=== PATIENT | female | born 1960 | race Caucasian/White ===

== ENCOUNTER 2016-05-16 14:34 | Inpatient (IN) | payer MEDICAID, OTHER ==
[2016-05-16] MEDS ORDERED: NORMAL SALINE 1,000 ML IV ONE ×3 (14:51→16:55)
[2016-05-16] MEDS ORDERED: ONDANSETRON HCL/PF 2 MG/ML VIAL IV ONE (14:51)
[2016-05-16] MEDS ORDERED: ONDANSETRON HCL/PF 2 MG/ML VIAL ONE (14:57)
--- NOTE | 2016-05-16 15:13 | ERNOTE ---
Medical Problem HPI - Narrative Date of Service: 05/16/16 - General Chief Complaint: Nausea/Vomiting Time Seen by Provider: 05/16/16 15:03 Source: patient Exam Limitations: no limitations - Immun/Allergies/Home Medications Immunizations: IMMUNIZATION HX Immunizations Up to Date Yes History of Influenza Vaccine No Hx Pneumococcal Vaccination No Allergies/Adverse Reactions: Allergies ceftriaxone [From Rocephin] Allergy (Intermediate, Verified 05/16/16 16:15) Hives Penicillins Adverse Reaction (Mild, Verified 05/16/16 14:45) rash Home Medications: HOME MEDICATIONS Omeprazole [Prilosec] 20 mg PO DAILY 02/27/14 [Last Taken 11/20/14] ALPRAZolam [Xanax] 0.5 mg PO TID PRN #90 tablet 11/25/14 [Last Taken Unknown] - History of Present History Narrative: Has been out of the area in [place], till November last year. Normally taking xanax. Ran out by the first of the year. Didn't have a medical card or a doctor, till just recently, so hasn't had the medication all this year. She appears to be a not entirely forthcoming historian, since to start with, it was vomiting for the last 3-4 days, then it was off and on for the last month or longer. Says she is very anxious, and would like to have some xanax. Has been drinking heavily and constantly from November till about four or five days ago. C/O severe indigestion. Timing: getting worse Severity: moderate Modifying Factors - (Improves): Present: other - nothing Modifying Factors - (Worsens): Present: eating Review of Systems - Review of Systems Constitutional: Present: See HPI EYE: Present: no symptoms reported ENT: Present: no symptoms reported Respiratory: Present: no symptoms reported Cardiology: Present: no symptoms reported Gastrointestinal/Abdominal: Present: nausea, vomiting, other - severe heartburn Genitourinary: Present: no symptoms reported Musculoskeletal: Present: no symptoms reported Skin: Present: no symptoms reported Neurological: Present: anxiety Endocrine: Present: no symptoms reported Hematologic/Lymphatic: Present: no symptoms reported Psych: Present: no symptoms reported All Other Systems: All systems neg except as marked - Patient's Past Medical History Patient History - Medical: Alcohol Abuse, Anxiety, GERD, Other - history of pancreatitis and previous pancreatic mass on imaging study Patient History - Cardiac/Respiratory: No pertinent hx Patient History - Cancer: No Hx of Cancer Patient History - Surgical Procedures: T & A, Other Patient History - Other: None LMP (females 10-50): other - Family History Father Family History - Medical: Diabetes Type 2 - Social History Living Situations: alone Psych History: Hx of Anxiety Smoking Status: Current every day smoker Do you dip or chew tobacco: No Alcohol Use: heavy Drug Use: none - Immunizations Immunizations Up to Date: Yes Hx Pneumococcal Vaccination: No History of Influenza Vaccine: No Physical Exam - Physical Exam General Appearance: Present: wd/wn, alert, anxious, thin Eye Exam: Normal inspection: bilateral, PERRL: bilateral, EOMI: bilateral Ears, Nose, Throat: Present: normal ENT inspection Neck: Present: normal inspection Respiratory: Present: no respiratory distress, normal breath sounds Cardiovascular/Chest: Present: regular rate, rhythm, no murmur Gastrointestinal/Abdominal: Present: normal bowel sounds, nontender, nondistended, soft, hepatomegaly Back Exam: Present: normal inspection Extremity Exam: Present: normal inspection, no edema Neurological Exam: Present: alert, oriented, no motor/sensory deficits Skin Exam: Present: normal color, warm/dry ED Progress - Results and Orders Patient's Lab Results:: I have reviewed the patient's lab results. - Vital Signs Patient's Vital Signs:: I have reviewed the patient's vital signs. Vital Signs: Vital Signs 05/16/16 14:37 Temperature 35.5 C L Pulse Rate 123 H Respiratory 20 Rate Blood Pressure 156/107 O2 Sat by Pulse 100 Oximetry - Progress/Reassessment Chief Complaint: Nausea/Vomiting Departure - Departure Clinical Impression: Alcohol abuse, Pancreatic mass Pancreatitis Qualifiers: Chronicity: acute Pancreatitis type: alcohol induced Acute pancreatitis complication: unspecified Qualified Code(s): K85.20 - Alcohol induced acute pancreatitis without necrosis or infection GERD (gastroesophageal reflux disease) Qualifiers: Esophagitis presence: with esophagitis Qualified Code(s): K21.0 - Gastro- esophageal reflux disease with esophagitis Disposition: [facility] Condition: Serious
[2016-05-16 15:22] LABS: Hematocrit 50.7 % (37.0-47.0); Hemoglobin 17.3 gm/dL (12.5-16.0); Mean Cell Volume 102.4 fl (78-100); Mean Corpuscular Hemoglobin 34.9 pg (27-31); Mean Corpuscular Hgb Conc 34.1 g/dl (32-36); Mean Platelet Volume 9.5 fl (6.0-9.5); Platelet Count 430 K/mm3 (150-450); Red Blood Count 4.95 M/mm3 (4.2-5.4); Red Cell Distribution Width 13.6 % (11.5-14.0); White Blood Count 26.1 K/mm3 (4.0-10.5)
[2016-05-16 15:24] LABS: Cocaine Ur Negative (NEGATIVE); Urine Barbiturate Negative (NEGATIVE); Urine Benzodiazepines Negative (NEGATIVE); Urine Opiates Negative (NEGATIVE); Urine PCP Negative (NEGATIVE); Urine THC Positive (NEGATIVE)
--- OUTSIDE RECORDS SUMMARY | 2016-05-16 15:24 | XMS REPORT | Continuity of Care Document ---
:1960 Author Organization [facility] ([facility]) [place] [address] Phone [phone] Care Team Providers Name Role Phone Christianne James Primary Care Provider [phone] Source Comments This disclosure is being made pursuant to the Care Everywhere program, applicable federal and state laws, and may not contain all informaitonavailable regarding this patient.[facility] ([facility]) Active Allergies and Adverse Reactions Allergen Noted Date Severity Reactions Comments Penicillins 12/14/2012 Rash Current Medications Prescription Sig. Disp. Refills Start Date End Date Status OMEPRAZOLE Take by mouth daily. Active MAGNESIUM PO ALPRAZolam 0.5 mg Take 0.5 mg by mouth at Active tablet bedtime as needed. drospirenone-ethin Take 1 Tab by mouth daily. Active yl Indications: estradiol-levomefo CONTRACEPTION late (BEYAZ) tablet metoPROLol Take 50 mg by mouth 2 Active tartrate 50 mg times daily. tablet benazepril 40 mg Take 40 mg by mouth daily. Active tablet Indications: HYPERTENSION simvastatin 20 mg Take 20 mg by mouth every Active tablet evening. 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 Pulse 84 01/18/2013 7:55 AM HUMANE OFFICER Temperature 36.4 C (97.5 F) 01/18/2013 7:55 AM HUMANE OFFICER Respiratory Rate 16 01/18/2013 7:55 AM HUMANE OFFICER Height 1.6 m (5' 3") 12/14/2012 8:27 AM CDT Weight 67.813 kg (149 lb 8 oz) 01/18/2013 7:55 AM HUMANE OFFICER Body Mass Index 26.49 01/18/2013 7:55 AM HUMANE OFFICER Oxygen Saturation - - Plan of Care Health Maintenance Due Date Last Done Comments HCV Screening 1960 Hepatitis B Vaccine (1 of 3 - Primary Series) 1960 Tdap Vaccine 09/08/1971 Lipid Disorder Screening 1978 MMR Vaccine 1978 Td Vaccine 1978 Cervical Cancer Screening 1990 Mammogram 2000 Colonoscopy 2010 Influenza Vaccine: Seasonal (#1) 09/15/2015 Results from Last 3 Months Not on file
[2016-05-16 15:25] LABS: Total Cells Counted 100
[2016-05-16 15:26] LABS: Urine Appearance Slightly Cloudy; Urine Blood 50 /ul (NEGATIVE); Urine Color Dark Yellow; Urine Ketone Large mg/dL (NEGATIVE); Urine Nitrite Negative (NEGATIVE); Urine Protein 100 mg/dL (NEGATIVE); Urine Urobilinogen Normal (NORMAL)
[2016-05-16 15:27] LABS: Urine Bacteria 1+; Urine Bilirubin 6 mg/dl (NEGATIVE); Urine RBC 0-5 /hpf (0-5); Urine WBC 0-5 /hpf (0-5)
[2016-05-16] MEDS ORDERED: hydrOXYzine PAMOATE 25 MG CAPSULE PO ONE (15:39)
[2016-05-16 15:41] LABS: Band 3 % (0-2.0); Lymphocyte 5 % (20-51); Monocyte 5 % (0-9); Neutrophil 87 % (42-75); Neutrophil # 22.7 K/mm3 (1.3-6.0); Platelet Estimate Increased (NORMAL); RBC Morphology Normal (NORMAL)
[2016-05-16] MEDS ORDERED: hydrOXYzine PAMOATE 25 MG CAPSULE ONE ×2 (15:41→15:43)
[2016-05-16 15:45] LABS: ALT 59 U/L (19-67); AST 66 U/L (0-48); Albumin * 4.1 gm/dl (3.4-5.0); Alkaline Phosphatase * 91 U/L (50-170); Amylase * 442 U/L (25-115); Anion Gap 32.9 mmol/L (6.8-13.8); BUN/Creatinine Ratio 13.1 (9.0-21.6); Bilirubin, Total 1.7 mg/dL (0.0-1.1); Blood Urea Nitrogen 21 mg/dL (3-23); Ca. Corrected For Albumin 10.5 mg/dL (8.4-10.2); Calcium * 10.9 mg/dL (7.9-10.9); Chloride 86 mmol/L (97-106); Glucose * 304 mg/dL (70-110); Potassium 2.9 mmol/L (3.4-4.6); Sodium 131 mmol/L (132-142); T4 Free * 0.97 ng/dL (0.76-1.46); TSH * 1.066 uIU/mL (0.358-3.74); Total Protein 9.2 gm/dL (6.2-8.2)
[2016-05-16] MEDS ORDERED: POTASSIUM CHLORIDE 100 ML IV ONE ×2 (15:49→17:30)
[2016-05-16] MEDS ORDERED: THIAMINE HCL 100 MG/ML VIAL IM ONE (15:50)
[2016-05-16 15:53] LABS: Lipase 6588 U/L (73-393)
[2016-05-16] MEDS ORDERED: THIAMINE HCL 100 MG/ML VIAL ONE (15:59)
[2016-05-16] MEDS ORDERED: LORazepam 2 MG/ML DISP.SYRIN IV ONE (16:28)
[2016-05-16] MEDS ORDERED: SUCRALFATE 1 G/10 ML UDC PO ONE (16:28)
[2016-05-16] MEDS ORDERED: PANTOPRAZOLE SODIUM 40 MG in NORMAL SALINE 100 ML IV ONE (16:28)
--- OUTSIDE RECORDS SUMMARY | 2016-05-16 16:28 | XMS REPORT | Continuity of Care Document ---
:1960 Author Organization [facility] ([facility]) Address [place] [address] Phone [phone] Care Team Providers Name Role Phone Christianne James Primary Care Provider [phone] Source Comments This disclosure is being made pursuant to the Care Everywhere program, applicable federal and state laws, and may not contain all informaitonavailable regarding this patient.[facility] ([facility]) Active Allergies and Adverse Reactions Allergen Noted [...] Taken Blood Pressure 126/76 01/18/2013 7:55 AM C[employer]OM [employer]ED [employer]N OPERATOR Pulse 84 01/18/2013 7:55 AM C[employer]OM [employer] OPERATOR Temperature 36.4 C (97.5 F) 01/18/2013 7:55 AM C[employer]OM FE[employer]N OPERATOR Respiratory Rate 16 01/18/2013 7:55 AM C[employer]OM FE[employer] OPERATOR Height 1.6 m (5' 3") 12/14/2012 8:27 AM CDT Weight 67.813 kg (149 lb 8 oz) 01/18/2013 7:55 AM C[employer]N OPERATOR Body Mass Index 26.49 01/18/2013 7:55 AM C[employer]OM [employer]N OPERATOR Oxygen Saturation - - Plan of Care [...]
[2016-05-16] MEDS: CIPROFLOXACIN IN 5 % DEXTROSE 400 MG/200 ML BAG IV SCH (16:30)
[2016-05-16] MEDS: metroNIDAZOLE/SODIUM CHLORIDE 500 MG/100 ML BAG IV SCH (16:34)
[2016-05-16] MEDS ORDERED: LORazepam 2 MG/ML DISP.SYRIN IV PRN ×2 (16:36)
[2016-05-16] MEDS ORDERED: POTASSIUM CHLORIDE 40 MEQ in NORMAL SALINE 1,000 ML IV PRN (19:00)
[2016-05-16] MEDS: POTASSIUM CHLORIDE/NS 1,000 ML IV SCH (20:11)
[2016-05-16] MEDS: PANTOPRAZOLE SODIUM 40 MG in NORMAL SALINE 100 ML IV SCH (20:11)
--- NOTE | 2016-05-16 20:48 | HP ---
<Gary Duncan - Last Filed: 05/16/16 20:51> Chief Complaint - Chief Complaint Date of Service: 05/16/16 Time of Service: 20:33 Chief Complaint: Nausea, vomiting and indegestion History of Present Illness: 55 years old female adm to the hospital from ER with reports of nausea, vomiting and indigestion going on x 3-4 days. PMH significant for alcohol abuse , GERD, anxiety and pancreatitis. Pt stated she has been drinking 3-4 vodka with Pepsis and smoking marijuana daily, due to her anxiety. She report associated s/s headache and dizziness.She has been living in [place] for the past year and just moved back home. Over the past several months she has been homeless and dealing family member that is sick.She was been without health insurance hence her reason for not seeking care sooner. In ER tested positive for marijuana,WBC 26.1, hgb17.3, K+ 2.9 and supplemented lipase 6588, Bili 1.7 lactic acid 3.6--->1.7 WNL. She was initiated on Cipro and Flagyl prophylactic, concerns for pancreatic fluid collection/ pancreatic necrosis. CT ABD/ Pelvic still pending. Plan of care discussed with pt she verbalized understanding and agrees. - Patient's Past Medical History Patient History - Medical: Alcohol Abuse, Anxiety, GERD, Other - subtance abuse Patient History - Cardiac/Respiratory: No pertinent hx Patient History - Cancer: No Hx of Cancer Patient History - Surgical Procedures: T & A, Other Patient History - Other: None LMP (females 10-50): other - Family History Father Family History - Medical: Diabetes Type 2 - Social History Living Situations: alone Psych History: Hx of Anxiety Smoking Status: Current every day smoker Cigarettes Packs Per Day: 1 Have you smoked in the past 12 months: Yes Do you dip or chew tobacco: No Smoking Start Date: 02/14/14 Patient requests Smoking Cessation Consult: Yes Initiate information on Smoking Cessation: Yes Alcohol Use: heavy Drug Use: benzodiazepine, marijuana - Immunizations Immunizations Up to Date: Yes Hx Pneumococcal Vaccination: No History of Influenza Vaccine: No Review Of Systems (GEN) - Review of Systems Generalized/Overall Review: Present: Weakness EENTM: Present: No Symptoms Reported Respiratory: Present: No Symptoms Reported Cardiac: Present: No Symptoms Reported Abdominal: Present: Nausea, Vomiting Genitourinary: Present: No Symptoms Reported Musculoskeletal: Present: No Symptoms Reported Neurological: Present: Headache, Anxiety Skin: Present: No Symptoms Reported Endocrine: Present: No Symptoms Reported Immunizations: IMMUNIZATION HX Immunizations Up to Date Yes History of Influenza Vaccine No Hx Pneumococcal Vaccination No Allergies/Adverse Reactions: Allergies Allergy/AdvReac Type Severity Reaction Status Date / Time ceftriaxone [From Rocephin] Allergy Intermediate Hives Verified 05/16/16 16:15 Penicillins AdvReac Mild rash Verified 05/16/16 14:45 Home Medications: HOME MEDICATIONS Omeprazole [Prilosec] 20 mg PO DAILY 02/27/14 [Last Taken 11/20/14] ALPRAZolam [Xanax] 0.5 mg PO TID PRN #90 tablet 11/25/14 [Last Taken Unknown] Exam - Exam Vital Signs: Vital Signs - Last Taken Temp 36.5 C 05/16/16 16:36 Pulse 97 05/16/16 16:52 Resp 15 05/16/16 16:52 BP 183/109 05/16/16 16:52 Pulse Ox 100 05/16/16 16:52 Constitutional: Present: Alert, Oriented x3, Cooperative, Well developed, No distress, Young ENT Exam: Present: moist mucous membranes Eye Exam: bilateral eye: PERRL Neck: Present: full range of motion Back Exam: Present: no CVA tenderness Breasts: Present: Exam deferred Respiratory: Present: chest non-tender, lungs clear, normal breath sounds, no respiratory distress Cardiovascular/Chest: Present: normal peripheral pulses, regular rate, rhythm, no chest tenderness, no edema, no gallop, no JVD Peripheral Pulses: dorsalis-pedis (R): 3+, dorsalis-pedis (L): 3+ Abdomen: Present: Normal bowel sounds, soft, nontender, nondistended Extremity: Present: normal range of motion, non-tender, normal inspection, no pedal edema, no calf tenderness Skin Exam: Present: warm/dry Neurologic: Present: oriented x 3 Appearance: Present: appropriate appearance Eye contact: Present: cooperative, good eye contact Thoughts: Present: normal thought pattern Diagnostic Studies: Laboratory Results WBC 26.1 K/mm3 (4.0-10.5) H 05/16/16 15:12 RBC 4.95 M/mm3 (4.2-5.4) 05/16/16 15:12 Hgb 17.3 gm/dL (12.5-16.0) H 05/16/16 15:12 Hct 50.7 % (37.0-47.0) H 05/16/16 15:12 MCV 102.4 fl (78-100) H 05/16/16 15:12 MCH 34.9 pg (27-31) H 05/16/16 15:12 MCHC 34.1 g/dl (32-36) 05/16/16 15:12 RDW 13.6 % (11.5-14.0) 05/16/16 15:12 Plt Count 430 K/mm3 (150-450) 05/16/16 15:12 MPV 9.5 fl (6.0-9.5) 05/16/16 15:12 Neutrophils % (Manual) 87 % (42-75) H 05/16/16 15:12 Band Neuts % (Manual) 3 % (0-2.0) H 05/16/16 15:12 Lymphocytes % (Manual) 5 % (20-51) L 05/16/16 15:12 Monocytes % (Manual) 5 % (0-9) 05/16/16 15:12 Neutrophils # (Manual) 22.7 K/mm3 (1.3-6.0) H 05/16/16 15:12 Lymphocytes # (Manual) 1.3 k/mm3 (1.5-3.5) L 05/16/16 15:12 Monocytes # (Manual) 1.3 k/mm3 (0.0-1.0) H 05/16/16 15:12 Platelet Estimate Increased (NORMAL) H 05/16/16 15:12 RBC Morphology Normal (NORMAL) 05/16/16 15:12 Sodium 131 mmol/L (132-142) L 05/16/16 15:12 Plasma Sodium 134 mmol/L (130-142) 05/16/16 15:12 Potassium 2.9 mmol/L (3.4-4.6) L 05/16/16 15:12 Chloride 86 mmol/L (97-106) L 05/16/16 15:12 Carbon Dioxide 15.0 mmol/L (24-32.6) L 05/16/16 15:12 Anion Gap 32.9 mmol/L (6.8-13.8) H 05/16/16 15:12 BUN 21 mg/dL (3-23) 05/16/16 15:12 Creatinine 1.60 mg/dL (0.4-1.4) H 05/16/16 15:12 Est GFR (Non-Af Amer) 36 mL/min (60-130) L D 05/16/16 15:12 BUN/Creatinine Ratio 13.1 (9.0-21.6) 05/16/16 15:12 Random Glucose 304 mg/dL (70-110) H 05/16/16 15:12 Lactic Acid, Venous 1.7 mmol/L (0.4-2.0) 05/16/16 17:42 Calcium 10.9 mg/dL (7.9-10.9) 05/16/16 15:12 Calcium Adj for Albumin 10.5 mg/dL (8.4-10.2) H 05/16/16 15:12 Magnesium 1.3 mg/dL (1.2-2.8) 05/16/16 15:12 Total Bilirubin 1.7 mg/dL (0.0-1.1) H 05/16/16 15:12 AST 66 U/L (0-48) H 05/16/16 15:12 ALT 59 U/L (19-67) 05/16/16 15:12 Alkaline Phosphatase 91 U/L (50-170) 05/16/16 15:12 Total Protein 9.2 gm/dL (6.2-8.2) H 05/16/16 15:12 Albumin 4.1 gm/dl (3.4-5.0) 05/16/16 15:12 Amylase 442 U/L (25-115) H 05/16/16 15:12 Lipase 6588 U/L (73-393) H 05/16/16 15:12 TSH 1.066 uIU/mL (0.358-3.74) 05/16/16 15:12 Free T4 0.97 ng/dL (0.76-1.46) 05/16/16 15:12 Urine Color Dark yellow 05/16/16 15:06 Urine Appearance Slightly cloudy 05/16/16 15:06 Urine pH 6.0 pH (5.0-7.0) 05/16/16 15:06 Ur Specific [place] 1.030 SP.GR. (1.005-1.010) 05/16/16 15:06 Urine Protein 100 mg/dL (NEGATIVE) H 05/16/16 15:06 Urine Glucose (UA) Negative mg/dL (NEGATIVE) 05/16/16 15:06 Urine Ketones Large mg/dL (NEGATIVE) 05/16/16 15:06 Urine Blood 50 /ul (NEGATIVE) H 05/16/16 15:06 Urine Nitrate Negative (NEGATIVE) 05/16/16 15:06 Urine Bilirubin 6 mg/dl (NEGATIVE) 05/16/16 15:06 Prot Sulfosalicylic Acd 4+ mg/dL (0) H 05/16/16 15:06 Urine Urobilinogen Normal EU/dl (NORMAL) 05/16/16 15:06 Ur Leukocyte Esterase Negative /ul (NEGATIVE) 05/16/16 15:06 Urine RBC 0-5 /hpf (0-5) 05/16/16 15:06 Urine WBC 0-5 /hpf (0-5) 05/16/16 15:06 Ur Epithelial Cells 0-5 /hpf (0-5) 05/16/16 15:06 Urine Bacteria 1+ (NONE) H 05/16/16 15:06 Urine Culture Comments No culture indicated 05/16/16 15:06 Urine Opiates Screen Negative (NEGATIVE) 05/16/16 15:06 Barbiturate Screen Negative (NEGATIVE) 05/16/16 15:06 Ur Phencyclidine Scrn Negative (NEGATIVE) 05/16/16 15:06 Urine Amphetamine Negative (NEGATIVE) 05/16/16 15:06 U Benzodiazepines Scrn Negative (NEGATIVE) 05/16/16 15:06 Urine Cocaine Screen Negative (NEGATIVE) 05/16/16 15:06 Urine Marijuana (THC) Positive (NEGATIVE) H 05/16/16 15:06 Ethyl Alcohol Less than 3.0 mg/dL (0.0-10.0) 05/16/16 15:12 Assessment/Plan - Narrative Narrative: Acute pancreatitis- secondary to Alcohol abuse Pt stated her last drink was yesterday, she report having 3-4 Vodka and Pepsis daily. Due to alcohol induced pancreatitis will continue with folic acid, MVI, Thiamin , ativan and CIWA protocol Keep NPO and monitor I/O Continue with IVF resuscitation On adm Lipase 6588, mag 1.3, trevon 10.9 and K+2.9 been supplemented continue to Monitor lipase, CMP in morning Cipro and Flagyl prophylactic: concerns for pancreatic necrosis/ pancreatic duct fluid collection, s/s 3-[address]BD/ Pelvic pending Pain control with morphine Alcohol abuse- chronic alcohol abuse Alcohol cessation education CIWA protocol with ativan AA recommendation upon discharge GERD Continue with Protonix IV Anxiety Hold Xanax and use ativan for alcohol withdrawal Hypertension On adm BP 153/80 Continue to monitor Code status: Full GI ppx: Protonix Anticipate discharge home 1-3 days Time 45 minutes - Assessment/Plan (1) Acute pancreatitis Problem: Acute QualifierTitle: Pancreatitis type: alcohol induced (2) Alcohol abuse Problem: Chronic (3) GERD (gastroesophageal reflux disease) Problem: Chronic QualifierTitle: Esophagitis presence: with esophagitis Qualified Code(s) : K21.0 - Gastro-esophageal reflux disease with esophagitis (4) Anxiety Problem: Chronic <Davian Carrero - Last Filed: 05/17/16 17:38> Immunizations: IMMUNIZATION HX Immunizations Up to Date Yes History of Influenza Vaccine No Hx Pneumococcal Vaccination No Exam - Exam Vital Signs: Vital Signs - Last Taken Temp 36.6 C 05/17/16 15:38 Pulse 75 05/17/16 15:38 Resp 18 05/17/16 15:38 BP 145/88 05/17/16 15:38 Pulse Ox 97 05/17/16 15:38 Diagnostic Studies: Abnormal Lab Results 05/17/16 05/17/16 Range/Units 05:10 05:10 WBC 14.2 H D (4.0-10.5) K/mm3 RBC 3.57 L (4.2-5.4) M/mm3 Hct 36.0 L (37.0-47.0) % MCV 100.8 H (78-100) fl MCH 35.3 H (27-31) pg MPV 10.1 H (6.0-9.5) fl Immature Gran % (Auto) 0.50 H (0.001-0.429) % Immature Gran # (Auto) 0.07 H (0.000-0.0310) K/mm3 Neutrophils % 77.4 H (42-75.0) % Lymphocytes % 13.4 L (20-51) % Neutrophils # 11.0 H (1.3-6.0) K/mm3 Monocytes # 1.1 H (0.0-1.0) k/mm3 Carbon Dioxide 21.0 L (24-32.6) mmol/L Anion Gap 16.4 H (6.8-13.8) mmol/L Random Glucose 140 H D (70-110) mg/dL Total Protein 6.1 L (6.2-8.2) gm/dL Albumin 2.7 L (3.4-5.0) gm/dl HDL Cholesterol 39 L (40-60) mg/dL Cholesterol/HDL Ratio 4.9 H (3.3-4.4) mg/dL Amylase 141 H (25-115) U/L Lipase 2025 H (73-393) U/L Laboratory Results WBC 14.2 K/mm3 (4.0-10.5) H D 05/17/16 05:10 RBC 3.57 M/mm3 (4.2-5.4) L 05/17/16 05:10 Hgb 12.6 gm/dL (12.5-16.0) 05/17/16 05:10 Hct 36.0 % (37.0-47.0) L 05/17/16 05:10 MCV 100.8 fl (78-100) H 05/17/16 05:10 MCH 35.3 pg (27-31) H 05/17/16 05:10 MCHC 35.0 g/dl (32-36) 05/17/16 05:10 RDW 13.2 % (11.5-14.0) 05/17/16 05:10 Plt Count 248 K/mm3 (150-450) 05/17/16 05:10 MPV 10.1 fl (6.0-9.5) H 05/17/16 05:10 Immature Gran % (Auto) 0.50 % (0.001-0.429) H 05/17/16 05:10 Immature Gran # (Auto) 0.07 K/mm3 (0.000-0.0310) H 05/17/16 05:10 Neutrophils % 77.4 % (42-75.0) H 05/17/16 05:10 Neutrophils % (Manual) 87 % (42-75) H 05/16/16 15:12 Band Neuts % (Manual) 3 % (0-2.0) H 05/16/16 15:12 Lymphocytes % 13.4 % (20-51) L 05/17/16 05:10 Lymphocytes % (Manual) 5 % (20-51) L 05/16/16 15:12 Monocytes % 7.7 % (0.0-9) 05/17/16 05:10 Monocytes % (Manual) 5 % (0-9) 05/16/16 15:12 Eosinophils % 0.8 % (0.0-3.0) 05/17/16 05:10 Basophils % 0.2 % (0.0-1.0) 05/17/16 05:10 Nucleated RBC % 0.0 k/mm3 (0-1) 05/17/16 05:10 Neutrophils # 11.0 K/mm3 (1.3-6.0) H 05/17/16 05:10 Neutrophils # (Manual) 22.7 K/mm3 (1.3-6.0) H 05/16/16 15:12 Lymphocytes # 1.9 k/mm3 (1.5-3.5) 05/17/16 05:10 Lymphocytes # (Manual) 1.3 k/mm3 (1.5-3.5) L 05/16/16 15:12 Monocytes # 1.1 k/mm3 (0.0-1.0) H 05/17/16 05:10 Monocytes # (Manual) 1.3 k/mm3 (0.0-1.0) H 05/16/16 15:12 Eosinophils # 0.1 k/mm3 (0.0-0.7) 05/17/16 05:10 Absolute Basophils 0.0 k/mm3 (0.0-0.1) 05/17/16 05:10 Platelet Estimate Increased (NORMAL) H 05/16/16 15:12 RBC Morphology Normal (NORMAL) 05/16/16 15:12 Sodium 135 mmol/L (132-142) 05/17/16 05:10 Plasma Sodium 136 mmol/L (130-142) 05/17/16 05:10 Potassium 3.4 mmol/L (3.4-4.6) 05/17/16 05:10 Chloride 101 mmol/L (97-106) 05/17/16 05:10 Carbon Dioxide 21.0 mmol/L (24-32.6) L 05/17/16 05:10 Anion Gap 16.4 mmol/L (6.8-13.8) H 05/17/16 05:10 BUN 11 mg/dL (3-23) 05/17/16 05:10 Creatinine 0.79 mg/dL (0.4-1.4) 05/17/16 05:10 Est GFR (Non-Af Amer) 80 mL/min (60-130) D 05/17/16 05:10 BUN/Creatinine Ratio 13.9 (9.0-21.6) 05/17/16 05:10 Random Glucose 140 mg/dL (70-110) H D 05/17/16 05:10 Lactic Acid, Venous 1.7 mmol/L (0.4-2.0) 05/16/16 17:42 Calcium 8.4 mg/dL (7.9-10.9) 05/17/16 05:10 Calcium Adj for Albumin 9.1 mg/dL (8.4-10.2) 05/17/16 05:10 Magnesium 1.3 mg/dL (1.2-2.8) 05/16/16 15:12 Total Bilirubin 0.8 mg/dL (0.0-1.1) 05/17/16 05:10 AST 37 U/L (0-48) 05/17/16 05:10 ALT 36 U/L (19-67) 05/17/16 05:10 Alkaline Phosphatase 55 U/L (50-170) 05/17/16 05:10 Total Protein 6.1 gm/dL (6.2-8.2) L 05/17/16 05:10 Albumin 2.7 gm/dl (3.4-5.0) L 05/17/16 05:10 Triglycerides 161 mg/dL (30-200) 05/17/16 05:10 Cholesterol 194 mg/dL (0-200) 05/17/16 05:10 LDL Cholesterol 123 mg/dL (70-130) 05/17/16 05:10 VLDL Cholesterol 32 mg/dL (5-40) 05/17/16 05:10 HDL Cholesterol 39 mg/dL (40-60) L 05/17/16 05:10 Cholesterol/HDL Ratio 4.9 mg/dL (3.3-4.4) H 05/17/16 05:10 Amylase 141 U/L (25-115) H 05/17/16 05:10 Lipase 2025 U/L (73-393) H 05/17/16 05:10 TSH 1.292 uIU/mL (0.358-3.74) 05/17/16 05:10 Free T4 0.92 ng/dL (0.76-1.46) 05/17/16 05:10 Urine Color Dark yellow 05/16/16 15:06 Urine Appearance Slightly cloudy 05/16/16 15:06 Urine pH 6.0 pH (5.0-7.0) 05/16/16 15:06 Ur Specific [place] 1.030 SP.GR. (1.005-1.010) 05/16/16 15:06 Urine Protein 100 mg/dL (NEGATIVE) H 05/16/16 15:06 Urine Glucose (UA) Negative mg/dL (NEGATIVE) 05/16/16 15:06 Urine Ketones Large mg/dL (NEGATIVE) 05/16/16 15:06 Urine Blood 50 /ul (NEGATIVE) H 05/16/16 15:06 Urine Nitrate Negative (NEGATIVE) 05/16/16 15:06 Urine Bilirubin 6 mg/dl (NEGATIVE) 05/16/16 15:06 Prot Sulfosalicylic Acd 4+ mg/dL (0) H 05/16/16 15:06 Urine Urobilinogen Normal EU/dl (NORMAL) 05/16/16 15:06 Ur Leukocyte Esterase Negative /ul (NEGATIVE) 05/16/16 15:06 Urine RBC 0-5 /hpf (0-5) 05/16/16 15:06 Urine WBC 0-5 /hpf (0-5) 05/16/16 15:06 Ur Epithelial Cells 0-5 /hpf (0-5) 05/16/16 15:06 Urine Bacteria 1+ (NONE) H 05/16/16 15:06 Urine Culture Comments No culture indicated 05/16/16 15:06 Urine Opiates Screen Negative (NEGATIVE) 05/16/16 15:06 Barbiturate Screen Negative (NEGATIVE) 05/16/16 15:06 Ur Phencyclidine Scrn Negative (NEGATIVE) 05/16/16 15:06 Urine Amphetamine Negative (NEGATIVE) 05/16/16 15:06 U Benzodiazepines Scrn Negative (NEGATIVE) 05/16/16 15:06 Urine Cocaine Screen Negative (NEGATIVE) 05/16/16 15:06 Urine Marijuana (THC) Positive (NEGATIVE) H 05/16/16 15:06 Ethyl Alcohol Less than 3.0 mg/dL (0.0-10.0) 05/16/16 15:12 Assessment/Plan - Narrative Narrative: I reviewed the entire record and examined the patient. We will give IV antibiotics, anticipating the results of the abdominal AT scan. I directly supervised our nurse practitioner in all of her care for this patient.
[2016-05-16] MEDS: NICOTINE 21 MG PATC TD SCH (22:23)
[2016-05-16] MEDS: ENOXAPARIN SODIUM 40 MG/0.4 ML SYRG SC SCH (22:23)
[2016-05-17] MEDS: metroNIDAZOLE/SODIUM CHLORIDE 500 MG/100 ML BAG IV SCH ×4 (01:21→16:58)
[2016-05-17] MEDS: CIPROFLOXACIN IN 5 % DEXTROSE 400 MG/200 ML BAG IV SCH ×2 (03:25→15:26)
[2016-05-17] MEDS: PANTOPRAZOLE SODIUM 40 MG in NORMAL SALINE 100 ML IV SCH ×2 (05:23→18:57)
[2016-05-17] MEDS: MORPHINE SULFATE 2 MG/ML DISP.SYRIN IV PRN ×2 (05:38→15:16)
[2016-05-17] MEDS: POTASSIUM CHLORIDE/NS 1,000 ML IV SCH ×2 (05:40→16:58)
[2016-05-17 06:00] LABS: Hemoglobin 12.6 gm/dL (12.5-16.0); Mean Cell Volume 100.8 fl (78-100); Mean Corpuscular Hemoglobin 35.3 pg (27-31); Mean Platelet Volume 10.1 fl (6.0-9.5); Neutrophil % 77.4 % (42-75.0); Platelet Count 248 K/mm3 (150-450); Red Blood Count 3.57 M/mm3 (4.2-5.4); Red Cell Distribution Width 13.2 % (11.5-14.0); White Blood Count 14.2 K/mm3 (4.0-10.5)
[2016-05-17 06:32] LABS: Albumin * 2.7 gm/dl (3.4-5.0); Anion Gap 16.4 mmol/L (6.8-13.8); BUN/Creatinine Ratio 13.9 (9.0-21.6); Bilirubin, Total 0.8 mg/dL (0.0-1.1); Ca. Corrected For Albumin 9.1 mg/dL (8.4-10.2); Calcium * 8.4 mg/dL (7.9-10.9); Chol/HDL Risk Ratio 4.9 mg/dL (3.3-4.4); Potassium 3.4 mmol/L (3.4-4.6); T4 Free * 0.92 ng/dL (0.76-1.46); TSH * 1.292 uIU/mL (0.358-3.74); Total Protein 6.1 gm/dL (6.2-8.2)
[2016-05-17] MEDS: FOLIC ACID 1 MG TABLET PO SCH (08:51)
[2016-05-17] MEDS: THIAMINE HCL 100 MG in NORMAL SALINE 50 ML IV SCH (08:55)
[2016-05-17] MEDS ORDERED: DIATRIZOATE MEGLUMINE, SODIUM 30 ML BTL PO ONE (11:09)
[2016-05-17] MEDS: LORazepam 2 MG/ML DISP.SYRIN IV PRN (15:20)
[2016-05-17] MEDS: ENOXAPARIN SODIUM 40 MG/0.4 ML SYRG SC SCH (17:00)
--- NOTE | 2016-05-17 19:29 | PN ---
Subjective - Date and Time Seen Date: 05/17/16 Time: 19:24 Subjective Narrative: Much better tonight. No pain, except a "migraine." No vomiting, no nausea. Told her about the need to followup further about her pancreas in the very near future, and she expressed understanding and willingness to do so. Objective - Review of Systems Generalized/Overall Review: Reports: Malaise EENTM: Reports: No Symptoms Reported Respiratory: Reports: No Symptoms Reported Cardiac: Reports: No Symptoms Reported Abdominal: Reports: No Symptoms Reported Genitourinary Symptoms: Reports: No Symptoms Reported Musculoskeletal Complaints: Reports: No Symptoms Reported Neurological: Reports: Headache Skin: Reports: No Symptoms Reported Endocrine: Reports: No Symptoms Reported Misc: All systems neg except as marked - Vitals Vitals: Last Vital Signs Selected Entries 05/17/16 18:19 Temperature 36.7 C Temperature Oral Source Pulse Rate 75 Respiratory 18 Rate Blood Pressure 125/69 Blood Pressure Supine Position O2 Sat by Pulse 99 Oximetry Oxygen Delivery Room Air Method - Abnormal Lab Findings Abnormal Lab Findings: Abnormal Lab Results 05/17/16 05/17/16 Range/Units 05:10 05:10 WBC 14.2 H D (4.0-10.5) K/mm3 RBC 3.57 L (4.2-5.4) M/mm3 Hct 36.0 L (37.0-47.0) % MCV 100.8 H (78-100) fl MCH 35.3 H (27-31) pg MPV 10.1 H (6.0-9.5) fl Immature Gran % (Auto) 0.50 H (0.001-0.429) % Immature Gran # (Auto) 0.07 H (0.000-0.0310) K/mm3 Neutrophils % 77.4 H (42-75.0) % Lymphocytes % 13.4 L (20-51) % Neutrophils # 11.0 H (1.3-6.0) K/mm3 Monocytes # 1.1 H (0.0-1.0) k/mm3 Carbon Dioxide 21.0 L (24-32.6) mmol/L Anion Gap 16.4 H (6.8-13.8) mmol/L Random Glucose 140 H D (70-110) mg/dL Total Protein 6.1 L (6.2-8.2) gm/dL Albumin 2.7 L (3.4-5.0) gm/dl HDL Cholesterol 39 L (40-60) mg/dL Cholesterol/HDL Ratio 4.9 H (3.3-4.4) mg/dL Amylase 141 H (25-115) U/L Lipase 2025 H (73-393) U/L - Exam Constitutional: Present: Alert, Oriented x3, Cooperative, Well developed, Well nourished, No distress ENT Exam: Present: normal ENT inspection, hearing grossly normal Neck: Present: normal inspection Respiratory: Present: lungs clear, no respiratory distress Cardiovascular/Chest: Present: regular rate, rhythm, no murmur Abdomen: Present: Normal bowel sounds, soft, nondistended, no rebound tenderness , no hepatospenomegaly, no masses, tender - slight epigastric tenderness. Extremity: Present: normal inspection, no pedal edema Skin Exam: Present: normal color, warm/dry, no cyanosis Neurologic: Present: alert, oriented x 3 Appearance: Present: appropriate appearance, neat Eye contact: Present: cooperative, good eye contact, normal speech Assessment/Plan Plan Narrative: Advance diet. Follow labs. Further pancreas eval as outpatient. - Problems/Diagnosis (1) Migraine Problem: Acute Qualifiers: Migraine type: without aura Status migrainosus presence: with status migrainosus Intractability: not intractable Qualified Code(s): G43.001 - Migraine without aura, not intractable, with status migrainosus (2) Pancreatic mass Problem: Chronic (3) Pancreatitis Problem: Acute Qualifiers: Chronicity: acute Pancreatitis type: alcohol induced Acute pancreatitis complication: unspecified Qualified Code(s): K85.20 - Alcohol induced acute pancreatitis without necrosis or infection (4) Alcohol abuse Problem: Chronic (5) GERD (gastroesophageal reflux disease) Problem: Chronic Qualifiers: Esophagitis presence: with esophagitis Qualified Code(s): K21.0 - Gastro- esophageal reflux disease with esophagitis (6) Anemia Problem: Acute Qualifiers: Anemia type: other cause Other causes of anemia: other cause, not classified Qualified Code(s): D64.89 - Other specified anemias (7) Anxiety Problem: Chronic (8) Hypertension Problem: Chronic Qualifiers: Hypertension type: essential hypertension Qualified Code(s): I10 - Essential (primary) hypertension
[2016-05-17] MEDS: NICOTINE 21 MG PATC TD SCH (22:51)
[2016-05-17] MEDS ORDERED: MAG HYDROX/ALUMINUM HYD/SIMETH 30 ML UDC PO ONE (23:15)
[2016-05-18] MEDS: metroNIDAZOLE/SODIUM CHLORIDE 500 MG/100 ML BAG IV SCH ×2 (00:30→08:29)
[2016-05-18] MEDS: POTASSIUM CHLORIDE/NS 1,000 ML IV SCH ×2 (01:42→18:39)
[2016-05-18] MEDS: CIPROFLOXACIN IN 5 % DEXTROSE 400 MG/200 ML BAG IV SCH (03:41)
[2016-05-18] MEDS: PANTOPRAZOLE SODIUM 40 MG in NORMAL SALINE 100 ML IV SCH ×2 (05:21→17:16)
[2016-05-18 06:27] LABS: Hematocrit 33.6 % (37.0-47.0); Hemoglobin 11.6 gm/dL (12.5-16.0); Mean Cell Volume 100.9 fl (78-100); Mean Corpuscular Hemoglobin 34.8 pg (27-31); Mean Corpuscular Hgb Conc 34.5 g/dl (32-36); Mean Platelet Volume 9.7 fl (6.0-9.5); Neutrophil # 5.5 K/mm3 (1.3-6.0); Neutrophil % 66.1 % (42-75.0); Platelet Count 172 K/mm3 (150-450); Red Blood Count 3.33 M/mm3 (4.2-5.4); Red Cell Distribution Width 13.3 % (11.5-14.0); White Blood Count 8.4 K/mm3 (4.0-10.5)
[2016-05-18 06:36] LABS: Amylase * 59 U/L (25-115); Lipase 1015 U/L (73-393)
[2016-05-18] MEDS: LORazepam 2 MG/ML DISP.SYRIN IV PRN ×3 (07:40→23:23)
[2016-05-18] MEDS ORDERED: ONDANSETRON HCL/PF 2 MG/ML VIAL IV PRN (08:12)
[2016-05-18] MEDS: FOLIC ACID 1 MG TABLET PO SCH (08:31)
[2016-05-18] MEDS: THIAMINE HCL 100 MG in NORMAL SALINE 50 ML IV SCH (09:37)
[2016-05-18] MEDS: MORPHINE SULFATE 2 MG/ML DISP.SYRIN IV PRN ×2 (12:48→22:02)
[2016-05-18] MEDS ORDERED: lamoTRIgine 100 MG TABLET PO SCH (17:00)
[2016-05-18] MEDS: ACAMPROSATE CALCIUM 333 MG TABLET PO SCH (17:16)
[2016-05-18] MEDS: ENOXAPARIN SODIUM 40 MG/0.4 ML SYRG SC SCH (17:17)
--- NOTE | 2016-05-18 17:37 | PN ---
Subjective - Date and Time Seen Date: 05/18/16 Time: 06:25 Subjective Narrative: Feels lousy today. Anxious. Has used benzodiazepines as an outpatient in the past to keep this under control. No pain, except a "migraine." No vomiting, but has some nausea. Discussed consult with Dr. Reid, and she agreed she would do this. Objective - Review of Systems Generalized/Overall Review: Reports: Malaise EENTM: Reports: No Symptoms Reported Respiratory: Reports: No Symptoms Reported Cardiac: Reports: No Symptoms Reported Abdominal: Reports: Nausea Genitourinary Symptoms: Reports: No Symptoms Reported Musculoskeletal Complaints: Reports: No Symptoms Reported Neurological: Reports: Headache, Anxiety Skin: Reports: No Symptoms Reported Endocrine: Reports: No Symptoms Reported Misc: All systems neg except as marked - Vitals Vitals: Last Vital Signs Selected Entries 05/18/16 03:41 Temperature 36.5 C Temperature Oral Source Pulse Rate 61 Pulse Rhythm Regular Respiratory 18 Rate Respiratory Normal Depth Respiratory Normal Effort Blood Pressure 152/75 Blood Pressure Supine Position O2 Sat by Pulse 99 Oximetry Oxygen Delivery Room Air Method - Abnormal Lab Findings Abnormal Lab Findings: Abnormal Lab Results 05/18/16 05/18/16 Range/Units 06:20 06:20 RBC 3.33 L (4.2-5.4) M/mm3 Hgb 11.6 L (12.5-16.0) gm/dL Hct 33.6 L (37.0-47.0) % MCV 100.9 H (78-100) fl MCH 34.8 H (27-31) pg MPV 9.7 H (6.0-9.5) fl Immature Gran % (Auto) 0.50 H (0.001-0.429) % Immature Gran # (Auto) 0.04 H (0.000-0.0310) K/mm3 Lipase 1015 H (73-393) U/L - Exam Constitutional: Present: Alert, Oriented x3, Cooperative, Well developed, Well nourished, No distress ENT Exam: Present: normal ENT inspection, hearing grossly normal Neck: Present: normal inspection Respiratory: Present: lungs clear, no respiratory distress Cardiovascular/Chest: Present: regular rate, rhythm, no murmur Abdomen: Present: Normal bowel sounds, soft, nontender, nondistended, no rebound tenderness, no hepatospenomegaly, no masses, obese Extremity: Present: normal range of motion, no pedal edema Skin Exam: Present: normal color, warm/dry, no cyanosis Neurologic: Present: alert, oriented x 3 Appearance: Present: appropriate appearance, neat Eye contact: Present: cooperative, good eye contact, normal speech Assessment/Plan Plan Narrative: Follow labs. Add naltrexone, lamictal, acamprasote, and risperdal. Consult Dr. Reid. Home in 1-2 days. - Problems/Diagnosis (1) Migraine Problem: Acute Qualifiers: Migraine type: without aura Status migrainosus presence: with status migrainosus Intractability: not intractable Qualified Code(s): G43.001 - Migraine without aura, not intractable, with status migrainosus (2) Pancreatic mass Problem: Chronic (3) Pancreatitis Problem: Acute Qualifiers: Chronicity: acute Pancreatitis type: alcohol induced Acute pancreatitis complication: unspecified Qualified Code(s): K85.20 - Alcohol induced acute pancreatitis without necrosis or infection (4) Alcohol abuse Problem: Chronic (5) GERD (gastroesophageal reflux disease) Problem: Chronic Qualifiers: Esophagitis presence: with esophagitis Qualified Code(s): K21.0 - Gastro- esophageal reflux disease with esophagitis (6) Anemia Problem: Acute Qualifiers: Anemia type: other cause Other causes of anemia: other cause, not classified Qualified Code(s): D64.89 - Other specified anemias (7) Anxiety Problem: Chronic (8) Hypertension Problem: Chronic Qualifiers: Hypertension type: essential hypertension Qualified Code(s): I10 - Essential (primary) hypertension
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
[2016-05-18] MEDS ORDERED: risperiDONE 1 MG TABLET PO SCH (21:00)
[2016-05-18] MEDS ORDERED: NALTREXONE HCL 50 MG TABLET PO SCH (21:00)
[2016-05-18] MEDS: NICOTINE 21 MG PATC TD SCH (22:02)
[2016-05-18] MEDS: CALCIUM CARBONATE 500 MG TAB.CHEW PO PRN (23:00)
[2016-05-19] MEDS: POTASSIUM CHLORIDE/NS 1,000 ML IV SCH (01:23)
[2016-05-19] MEDS: MORPHINE SULFATE 2 MG/ML DISP.SYRIN IV PRN ×2 (04:48→06:58)
[2016-05-19] MEDS: PANTOPRAZOLE SODIUM 40 MG in NORMAL SALINE 100 ML IV SCH (05:00)
[2016-05-19 05:43] LABS: Hematocrit 33.8 % (37.0-47.0); Hemoglobin 11.8 gm/dL (12.5-16.0); Mean Cell Volume 100.9 fl (78-100); Mean Corpuscular Hemoglobin 35.2 pg (27-31); Mean Corpuscular Hgb Conc 34.9 g/dl (32-36); Mean Platelet Volume 10.3 fl (6.0-9.5); Platelet Count 188 K/mm3 (150-450); Red Blood Count 3.35 M/mm3 (4.2-5.4); Red Cell Distribution Width 13.2 % (11.5-14.0); White Blood Count 9.7 K/mm3 (4.0-10.5)
[2016-05-19 06:07] LABS: BUN/Creatinine Ratio 2.3 (9.0-21.6); Calcium * 8.6 mg/dL (7.9-10.9); Carbon Dioxide 28.4 mmol/L (24-32.6); Estimated Creat Clear 122.3; Potassium 3.4 mmol/L (3.4-4.6)
[2016-05-19] MEDS: CALCIUM CARBONATE 500 MG TAB.CHEW PO PRN (07:09)
[2016-05-19 07:13] VITALS: BP 149/73
--- NOTE | 2016-05-19 08:22 | DS ---
(1) Migraine Problem: Acute Qualifiers: Migraine type: without aura Status migrainosus presence: with status migrainosus Intractability: not intractable Qualified Code(s): G43.001 - Migraine without aura, not intractable, with status migrainosus (2) Pancreatic mass Problem: Chronic (3) Pancreatitis Problem: Resolved Qualifiers: Chronicity: acute Pancreatitis type: alcohol induced Acute pancreatitis complication: unspecified Qualified Code(s): K85.20 - Alcohol induced acute pancreatitis without necrosis or infection (4) Alcohol abuse Problem: Chronic (5) GERD (gastroesophageal reflux disease) Problem: Chronic Qualifiers: Esophagitis presence: with esophagitis Qualified Code(s): K21.0 - Gastro- esophageal reflux disease with esophagitis (6) Anemia Problem: Acute Qualifiers: Anemia type: other cause Other causes of anemia: other cause, not classified Qualified Code(s): D64.89 - Other specified anemias (7) Anxiety Problem: Chronic (8) Hypertension Problem: Chronic Qualifiers: Hypertension type: essential hypertension Qualified Code(s): I10 - Essential (primary) hypertension (9) Chronic back pain Problem: Chronic Qualifiers: Back pain location: low back pain Back pain laterality: bilateral Sciatica presence: without sciatica Qualified Code(s): M54.5 - Low back pain; G89.29 - Other chronic pain (10) Chronic neck pain Problem: Chronic (11) Tobacco abuse Problem: Chronic Description of Stay: Conservative treatment for pancreatitis. Improved rapidly. Initially gave IV antibiotics, stopped when CT results became available. Seen by consultation from psychiatry, will follow as outpatient. Daily chronic headache. Chronic expressed desire for xanax. Chronic neck and low back pain. Wants to stop smoking. Procedures Performed: none Discharge Disposition: Home self care Disposition: Home self-care Condition: Fair Discharge Activity: Activity as tolerated Consultation Done:: Dr. Reid, psychiatry Problem Oriented Discharge Instructions to Patient/Family: Acute Pancreatitis, [id number], Alcohol Abuse and Nutrition, Alcohol Use Disorder Additional Patient Instructions (free text): CBC BMP Liver panel [address] Wolf [address] Reid 1 week. Prescriptions (Any new or edited meds): Acamprosate Calcium [Campral] 2 tab PO TID #180 tablet Disulfiram [Antabuse] 500 mg PO DAILY #30 tablet Folic Acid 1 mg PO DAILY #30 tablet Gabapentin 300 mg PO TID #90 capsule Multivitamins [Multivitamin Ca] 1 cap PO DAILY #30 capsule Naltrexone HCl [ReVia] 50 mg PO HS #30 tablet Nicotine [Nicoderm] 21 mg TD Q24H #30 patch.td24 Thiamine HCl [B-1] 100 mg PO DAILY #30 tablet Topiramate [Topamax] 25 mg PO DAILY #30 cap lamoTRIgine [Lamictal] 50 mg PO DAILY@1700 #30 tablet risperiDONE [Risperdal] 1 mg PO HS #30 tablet Complete Home Medications List: Complete Home Medication List: Acamprosate Calcium [Campral] 2 tab PO TID #180 tablet 05/19/16 Calcium Carbonate [Tums] 500 mg PO QID PRN #0 tab.chew 05/19/16 Disulfiram [Antabuse] 500 mg PO DAILY #30 tablet 05/19/16 Folic Acid 1 mg PO DAILY #30 tablet 05/19/16 Gabapentin 300 mg PO TID #90 capsule 05/19/16 Multivitamins [Multivitamin Ca] 1 cap PO DAILY #30 capsule 05/19/16 Naltrexone HCl [ReVia] 50 mg PO HS #30 tablet 05/19/16 Nicotine [Nicoderm] 21 mg TD Q24H #30 patch.td24 05/19/16 Thiamine HCl [B-1] 100 mg PO DAILY #30 tablet 05/19/16 Topiramate [Topamax] 25 mg PO DAILY #30 cap 05/19/16 lamoTRIgine [Lamictal] 50 mg PO DAILY@1700 #30 tablet 05/19/16 risperiDONE [Risperdal] 1 mg PO HS #30 tablet 05/19/16
[2016-05-19] MEDS: FOLIC ACID 1 MG TABLET PO SCH (08:30)
[2016-05-19] MEDS: ACAMPROSATE CALCIUM 333 MG TABLET PO SCH (08:30)
[2016-05-19] MEDS: THIAMINE HCL 100 MG in NORMAL SALINE 50 ML IV SCH (08:38)
== END 2016-05-19 11:00 | disposition home or self-care (01) | DRG 440 ==
LOC: ER 14:34 → MS 16:23
PROVIDERS: ADMIT Allergy & Immunology; ATTEND Allergy & Immunology
PROC: HZ2ZZZZ Detoxification Services for Substance Abuse Treatment (ICD-10-PCS; principal; 2016-05-16)
DX: K85.20 Alcohol induced acute pancreatitis without necrosis or infection (principal); G43.001 Migraine without aura, not intractable, with status migrainosus; K86.89 Other specified diseases of pancreas; F10.10 Alcohol abuse, uncomplicated; F12.10 Cannabis abuse, uncomplicated; K21.0 Gastro-esophageal reflux disease with esophagitis; F41.9 Anxiety disorder, unspecified; D64.89 Other specified anemias; I10 Essential (primary) hypertension; F17.200 Nicotine dependence, unspecified, uncomplicated
CPT/HCPCS: 36415; 74177; 80048; 80053; 80061; 80307; 81001; 82150; 83605; 83690; 83735; 84439; 84443; 85007; 85025; 87040; 87086; 93005; 96365; 96372; 96375; 99284; G0481

== ENCOUNTER 2016-05-25 05:26 | Emergency (ER) | payer MEDICAID ==
--- NOTE | 2016-05-25 05:58 | ERNOTE ---
Upper Extremity HPI - General Extremities Pain Location: wrist: left - pain after lifting laundry 2 days ago Source: patient Exam Limitations: no limitations - Immun/Allergies/Home Medications Immunizations: IMMUNIZATION HX Immunizations Up to Date Yes History of Influenza Vaccine No Hx Pneumococcal Vaccination No Allergies/Adverse Reactions: Allergies Allergy/AdvReac Type Severity Reaction Status Date / Time ceftriaxone [From Rocephin] Allergy Intermediate Hives Verified 05/25/16 05:33 Penicillins AdvReac Mild rash Verified 05/25/16 05:33 Home Medications: HOME MEDICATIONS Acamprosate Calcium [Campral] 2 tab PO TID #180 tablet 05/19/16 [Last Taken Unknown] Calcium Carbonate [Tums] 500 mg PO QID PRN #0 tab.chew 05/19/16 [Last Taken Unknown] Disulfiram [Antabuse] 500 mg PO DAILY #30 tablet 05/19/16 [Last Taken Unknown] Fluticasone Propionate 15.8 ml NS DAILY #1 spray.susp 05/19/16 [Last Taken Unknown] Folic Acid 1 mg PO DAILY #30 tablet 05/19/16 [Last Taken Unknown] Gabapentin 300 mg PO TID #90 capsule 05/19/16 [Last Taken Unknown] Multivitamins [Multivitamin Ca] 1 cap PO DAILY #30 capsule 05/19/16 [Last Taken Unknown] Naltrexone HCl [ReVia] 50 mg PO HS #30 tablet 05/19/16 [Last Taken Unknown] Nicotine [Nicoderm] 21 mg TD Q24H #30 patch.td24 05/19/16 [Last Taken Unknown] Thiamine HCl [B-1] 100 mg PO DAILY #30 tablet 05/19/16 [Last Taken Unknown] Topiramate [Topamax] 25 mg PO DAILY #30 cap 05/19/16 [Last Taken Unknown] lamoTRIgine [Lamictal] 50 mg PO DAILY@1700 #30 tablet 05/19/16 [Last Taken Unknown] risperiDONE [Risperdal] 1 mg PO HS #30 tablet 05/19/16 [Last Taken Unknown] Nabumetone 750 mg PO BID #20 tablet 05/25/16 [Last Taken Unknown] - History of Present Illness Occurred: yesterday Location of Incident: home Severity: moderate Method of Injury: Reports: no apparent injury Modifying Factors - (Improves): Reports: immobilization Modifying Factors - (Worsens): Reports: movement Associated Symptoms: Reports: weakness, loss of power (lt arm) Review of Systems - Review of Systems Constitutional: Present: no symptoms reported EYE: Present: no symptoms reported ENT: Present: no symptoms reported Respiratory: Present: no symptoms reported Cardiology: Present: no symptoms reported Gastrointestinal/Abdominal: Present: abdominal pain - pancreatitis 2 weeks ago, improved Genitourinary: Present: no symptoms reported Musculoskeletal: Present: See HPI, back pain - last week and was seen at [facility] Skin: Present: no symptoms reported Neurological: Present: no symptoms reported Endocrine: Present: no symptoms reported Hematologic/Lymphatic: Present: no symptoms reported Psych: Present: no symptoms reported - Patient's Past Medical History Patient History - Medical: Alcohol Abuse, Anxiety, GERD, Other Patient History - Cardiac/Respiratory: No pertinent hx Patient History - Cancer: No Hx of Cancer Patient History - Surgical Procedures: T & A, Other Patient History - Other: None - Family History Father Family History - Medical: Diabetes Type 2 - Social History Living Situations: alone Psych History: Hx of Anxiety Smoking Status: Current every day smoker Have you smoked in the past 12 months: Yes Do you dip or chew tobacco: No Alcohol Use: heavy Drug Use: benzodiazepine, marijuana - Immunizations Immunizations Up to Date: Yes Hx Pneumococcal Vaccination: No History of Influenza Vaccine: No Physical Exam - Physical Exam General Appearance: Present: wd/wn, alert, mild distress, thin Eye Exam: Normal inspection: bilateral Ears, Nose, Throat: Present: normal ENT inspection Neck: Present: normal inspection, nontender Respiratory: Present: no respiratory distress Extremity Exam: Present: decreased range of motion - left wrist due to pain, no swelling, mild erythema. Tenderness dorsal left wrist, no specific point tenderness. Other joints appear normal Neurological Exam: Present: alert, oriented, normal mood/affect Skin Exam: Present: normal color, warm/dry ED Progress - Results and Orders Patient's Lab Results:: I have reviewed the patient's lab results. Results and Orders: Laboratory Tests 05/25/16 05/25/16 06:10 06:10 WBC 12.2 H Hgb 13.9 Hct 39.9 Plt Count 298 Neutrophils % 73.1 Lymphocytes % 12.4 L Monocytes % 12.1 H Uric Acid 2.7 C-Reactive Prot, Quant 4.8 H - Vital Signs Patient's Vital Signs:: I have reviewed the patient's vital signs. Vital Signs: Vital Signs 05/25/16 05:30 Temperature 36.4 C L Pulse Rate 99 Respiratory 14 Rate Blood Pressure 141/98 O2 Sat by Pulse 100 Oximetry - X-Ray X-Ray #1 X-Ray: wrist Interpretation: Interp. by me X-ray Comments: left: Degenerative changes noted, no fracture or dislocation - Progress/Reassessment Chief Complaint: Upper Extremity Injury/Problem Progress:: Improved Departure Clinical Impression: Left wrist sprain Qualifiers: Encounter type: initial encounter Qualified Code(s): S63.502A - Unspecified sprain of left wrist, initial encounter - Departure Disposition: Home Follow Up Needed Condition: Fair Instructions: Cryotherapy, [id number], Wrist Sprain Additional Instructions: Take prescription medication as scheduled for 5-7 days then as needed. See your regular doctor if not improving, return to ER as needed Referrals: Davian Carrero MD [Primary Care Provider] - Prescriptions: Nabumetone 750 mg PO BID #20 tablet
[2016-05-25 06:16] LABS: Hematocrit 39.9 % (37.0-47.0); Hemoglobin 13.9 gm/dL (12.5-16.0); Mean Cell Volume 101.8 fl (78-100); Mean Corpuscular Hemoglobin 35.5 pg (27-31); Mean Corpuscular Hgb Conc 34.8 g/dl (32-36); Mean Platelet Volume 11.7 fl (6.0-9.5); Neutrophil # 8.9 K/mm3 (1.3-6.0); Neutrophil % 73.1 % (42-75.0); Red Blood Count 3.92 M/mm3 (4.2-5.4); Red Cell Distribution Width 13.2 % (11.5-14.0); White Blood Count 12.2 K/mm3 (4.0-10.5)
--- OUTSIDE RECORDS SUMMARY | 2016-05-25 06:19 | XMS REPORT | Continuity of Care Document ---
:1960 Author Organization [facility] ([facility]) Address [place] [address] Phone [phone] Care Team Providers Name Role Phone Christianne James Primary Care Provider [phone] Source Comments This disclosure is being made pursuant to the Care Everywhere program, applicable federal and state laws, and may not contain all informaitonavailable regarding this patient.[facility] ([facility]) Active Allergies and Adverse Reactions [...] Taken Blood Pressure 126/76 01/18/2013 7:55 AM VOCAL PERFORMER Pulse 84 01/18/2013 7:55 AM VOCAL PERFORMER Temperature 36.4 C (97.5 F) 01/18/2013 7:55 AM VOCAL PERFORMER Respiratory Rate 16 01/18/2013 7:55 AM VOCAL PERFORMER Height 1.6 m (5' 3") 12/14/2012 8:27 AM CDT Weight 67.813 kg (149 lb 8 oz) 01/18/2013 7:55 AM VOCAL PERFORMER Body Mass Index 26.49 01/18/2013 7:55 AM VOCAL PERFORMER Oxygen Saturation - - Plan of Care [...]
[2016-05-25 06:27] LABS: CRP 4.8 mg/dL (0.0-0.9); Uric Acid 2.7 mg/dL (2.6-7.2)
[2016-05-25] MEDS ORDERED: KETOROLAC TROMETHAMINE 60 MG/2 ML VIAL IM ONE ×2 (06:30→06:31)
[2016-05-25 06:37] VITALS: BP 128/85
[2016-05-25 06:43] LABS: Platelet Count 298 K/mm3 (150-450)
== END 2016-05-25 07:17 | disposition home or self-care (01) ==
LOC: ER 05:26
DX: S63.502A Unspecified sprain of left wrist, initial encounter (principal)

== ENCOUNTER 2016-08-09 20:46 | Emergency (ER) | payer MEDICAID ==
[2016-08-09 21:26] LABS: Hematocrit 39.7 % (37.0-47.0); Hemoglobin 13.5 gm/dL (12.5-16.0); Mean Cell Volume 91.9 fl (78-100); Mean Corpuscular Hemoglobin 31.3 pg (27-31); Mean Platelet Volume 9.7 fl (6.0-9.5); Neutrophil # 13.4 K/mm3 (1.3-6.0); Neutrophil % 72.1 % (42-75.0); Platelet Count 350 K/mm3 (150-450); Red Blood Count 4.32 M/mm3 (4.2-5.4); Red Cell Distribution Width 13.2 % (11.5-14.0); White Blood Count 18.5 K/mm3 (4.0-10.5)
[2016-08-09 21:29] LABS: Urine Bilirubin Negative (NEGATIVE); Urine Blood Negative /ul (NEGATIVE); Urine Ketone Negative (NEGATIVE); Urine Nitrite Negative (NEGATIVE); Urine Protein Negative (NEGATIVE); Urine Specific Gravity 1.025 SP.GR. (1.005-1.010); Urine Urobilinogen Normal (NORMAL)
--- NOTE | 2016-08-09 21:38 | ERNOTE ---
<Fawn Ramos - Last Filed: 08/09/16 21:58> Medical Problem HPI - Narrative Date of Service: 08/09/16 - General Chief Complaint: General Assessment Time Seen by Provider: 08/09/16 21:14 Source: patient Exam Limitations: no limitations - Immun/Allergies/Home Medications Immunizations: IMMUNIZATION HX Immunizations Up to Date Yes History of Influenza Vaccine No Hx Pneumococcal Vaccination No Allergies/Adverse Reactions: Allergies ceftriaxone [From Rocephin] Allergy (Intermediate, Verified 05/25/16 05:33) Hives Penicillins Adverse Reaction (Mild, Verified 05/25/16 05:33) rash Home Medications: HOME MEDICATIONS Fluticasone Propionate 15.8 ml NS DAILY #1 spray.susp 05/19/16 [Last Taken Unknown] Folic Acid 1 mg PO DAILY #30 tablet 05/19/16 [Last Taken Unknown] Gabapentin 300 mg PO TID #90 capsule 05/19/16 [Last Taken Unknown] Multivitamins [Multivitamin Ca] 1 cap PO DAILY #30 capsule 05/19/16 [Last Taken Unknown] Nicotine [Nicoderm] 21 mg TD Q24H #30 patch.td24 05/19/16 [Last Taken Unknown] risperiDONE [Risperdal] 1 mg PO HS #30 tablet 05/19/16 [Last Taken Unknown] ALPRAZolam [Xanax] 1 mg PO BID 08/09/16 [Last Taken Unknown] Acamprosate Calcium [Campral] 1 tab PO BID 08/09/16 [Last Taken Unknown] HYDROcodone/ACETAMINOPHEN [[place] 5-325 Tablet] 1 tab PO Q4H PRN 08/09/16 [Last Taken Unknown] Omeprazole [Prilosec] 20 mg PO DAILY 08/09/16 [Last Taken Unknown] Potassium Chloride 20 meq PO BID #4 packet 08/10/16 [Last Taken Unknown] - History of Present History Narrative: Pt. comes in with c/o L post lung pain and elevated WBC today. Pt. was seen by the GI team at [facility] and labs were drawn and on her way home she was called and told to follow up with someone today because she had a very bad infection as her "count is 20" Pt. denies any alleviating or aggravating factors but does state that she has chronic back pain and takes vicodin which did not affect her pain earlier today. Review of Systems - Review of Systems Constitutional: Present: no symptoms reported. Absent: recent illness, fever, chills, weakness, fatigue, malaise EYE: Present: no symptoms reported ENT: Present: no symptoms reported Respiratory: Present: no symptoms reported. Absent: shortness of breath, cough , wheezing Cardiology: Present: no symptoms reported. Absent: chest pain, palpitations, edema Gastrointestinal/Abdominal: Present: no symptoms reported. Absent: nausea, vomiting, diarrhea, abdominal pain Genitourinary: Present: no symptoms reported Musculoskeletal: Present: back pain - Post L upper. Absent: joint pain Skin: Present: no symptoms reported. Absent: rash, change in hair/nails Neurological: Present: no symptoms reported. Absent: headache, dizziness/light- headedness, numbness, tingling All Other Systems: All systems neg except as marked - Patient's Past Medical History Patient History - Medical: Alcohol Abuse, Anxiety, GERD Patient History - Cardiac/Respiratory: No pertinent hx Patient History - Cancer: No Hx of Cancer Patient History - Surgical Procedures: T & A, Other Patient History - Other: None - Family History Father Family History - Medical: Diabetes Type 2 - Social History Living Situations: home Psych History: Hx of Anxiety Smoking Status: Current every day smoker Patient requests Smoking Cessation Consult: No Initiate information on Smoking Cessation: No Alcohol Use: heavy Drug Use: benzodiazepine, marijuana - Immunizations Immunizations Up to Date: Yes Hx Pneumococcal Vaccination: No History of Influenza Vaccine: No Physical Exam - Physical Exam General Appearance: Present: wd/wn, alert, no apparent distress Eye Exam: Normal inspection: bilateral, PERRL: bilateral, EOMI: bilateral Ears, Nose, Throat: Present: normal ENT inspection, normal pharynx Neck: Present: normal inspection, nontender. Absent: lymphadenopathy (R), lymphadenopathy (L) Respiratory: Present: no respiratory distress, no accessory muscle use, chest nontender, wheezing - L lung throughout Cardiovascular/Chest: Present: regular rate, rhythm, no murmur, normal peripheral pulses Gastrointestinal/Abdominal: Present: normal bowel sounds, nontender, nondistended, soft, no organomegaly Back Exam: Present: normal inspection Extremity Exam: Present: normal inspection Neurological Exam: Present: alert, oriented, normal mood/affect, no motor/ sensory deficits Skin Exam: Present: normal color, warm/dry. Absent: pallor, skin rash ED Progress - Vital Signs Patient's Vital Signs:: I have reviewed the patient's vital signs. Vital Signs: Vital Signs 08/09/16 20:49 Temperature 36.8 C Pulse Rate 92 Respiratory 18 Rate Blood Pressure 144/89 O2 Sat by Pulse 99 Oximetry - Progress/Reassessment Chief Complaint: General Assessment - Transfer of Care Physician Sign Out: Fawn Ramos Receiving Physician: Hermann Shine Pending Results: Labs, X-ray results Expected Disposition: Discharge Departure - Departure Clinical Impression: Bronchitis, Hypokalemia, Pleurisy Elevated WBC count Qualifiers: Leukocytosis type: unspecified Qualified Code(s): D72.829 - Elevated white blood cell count, unspecified Disposition: Home self-care Condition: Good Instructions: Hypokalemia, Leukocytosis Print Language: Honduran Additional Instructions: Follow up with your doctor in the AM. If you feel worse return to the ED. Referrals: Rickey Lucas DO [Primary Care Provider] - Prescriptions: Potassium Chloride 20 meq PO BID #4 packet <Hermann Shine - Last Filed: 08/13/16 18:17> Medical Problem HPI - Immun/Allergies/Home Medications Immunizations: IMMUNIZATION HX Immunizations Up to Date Yes History of Influenza Vaccine No Hx Pneumococcal Vaccination No ED Progress - Results and Orders Patient's Lab Results:: I have reviewed the patient's lab results. - Vital Signs Patient's Vital Signs:: I have reviewed the patient's vital signs. Vital Signs: Vital Signs 08/09/16 08/09/16 20:49 22:34 Temperature 36.8 C Pulse Rate 92 75 Respiratory 18 18 Rate Blood Pressure 144/89 129/79 O2 Sat by Pulse 99 99 Oximetry - EKG EKG: NSR EKG read: Interp. by me EKG Comments: sinus, rate 77 - CT/Ultrasound CT/Ultrasound Narrative: CT angio of the chest was negative for PE or pneumonia. - Progress/Reassessment Progress:: Improved Progress Note-Subjective: 08/10/16 01:41 The patient is comfortable at this time. No evidence of infection, but has a leukocyotosis. The leukocytosis may be due to an early infection vs. leukemia. The pain that she had been experiencing was pleuritic in nature. A myocardial infarction was ruled out by the unremarkable EKG and Troponin was negative x 2. The hypokalemia is improving with oral supplementation. The lactic acid has decreased significantly. 08/10/16 01:45
[2016-08-09 21:39] LABS: Urine Appearance Clear; Urine Color Yellow
[2016-08-09 21:40] LABS: Urine Bacteria None Seen; Urine RBC None Seen /hpf (0-5); Urine WBC None Seen /hpf (0-5)
[2016-08-09 21:41] LABS: Albumin * 3.3 gm/dl (3.4-5.0); Anion Gap 12.3 mmol/L (6.8-13.8); BUN/Creatinine Ratio 4.6 (9.0-21.6); Bilirubin, Total 0.5 mg/dL (0.0-1.1); Calcium * 8.8 mg/dL (7.9-10.9); Carbon Dioxide 29.4 mmol/L (24-32.6); Potassium 2.7 mmol/L (3.4-4.6); Total Protein 7.7 gm/dL (6.2-8.2)
[2016-08-09] MEDS ORDERED: POTASSIUM CHLORIDE 20 MEQ TABLET.SA PO ONE ×2 (21:46→22:41)
[2016-08-09] MEDS ORDERED: POTASSIUM CHLORIDE 20 MEQ TABLET.SA ONE ×2 (21:53→22:42)
[2016-08-09] MEDS ORDERED: POTASSIUM CHLORIDE 100 ML IV SCH (22:00)
[2016-08-09] MEDS ORDERED: HYDROmorphone HCL 1 MG/ML DISP.SYRIN IV ONE (23:11)
[2016-08-09] MEDS ORDERED: ONDANSETRON HCL/PF 2 MG/ML VIAL ONE (23:12)
[2016-08-09] MEDS ORDERED: HYDROmorphone HCL 1 MG/ML DISP.SYRIN ONE (23:12)
[2016-08-09] MEDS ORDERED: ONDANSETRON HCL/PF 2 MG/ML VIAL IV ONE (23:12)
[2016-08-10 00:30] LABS: Hematocrit 36.9 % (37.0-47.0); Hemoglobin 12.7 gm/dL (12.5-16.0); Mean Cell Volume 90.7 fl (78-100); Mean Corpuscular Hemoglobin 31.2 pg (27-31); Mean Corpuscular Hgb Conc 34.4 g/dl (32-36); Mean Platelet Volume 10.2 fl (6.0-9.5); Neutrophil # 13.8 K/mm3 (1.3-6.0); Neutrophil % 73.6 % (42-75.0); Platelet Count 318 K/mm3 (150-450); Red Blood Count 4.07 M/mm3 (4.2-5.4); Red Cell Distribution Width 13.2 % (11.5-14.0); White Blood Count 18.8 K/mm3 (4.0-10.5)
[2016-08-10 00:45] LABS: BUN/Creatinine Ratio 5.5 (9.0-21.6); Blood Urea Nitrogen 3 mg/dL (3-23); Calcium * 8.8 mg/dL (7.9-10.9); Carbon Dioxide 28.1 mmol/L (24-32.6); Chloride 99 mmol/L (97-106); Estimated Creat Clear 95.6; Glucose * 104 mg/dL (70-110); Potassium 3.1 mmol/L (3.4-4.6); Sodium 137 mmol/L (132-142); Troponin I Less than 0.017 ng/ml (0.00-0.10)
[2016-08-10] MEDS ORDERED: POTASSIUM CHLORIDE 20 MEQ TABLET.SA PO ONE (00:56)
[2016-08-10] MEDS ORDERED: POTASSIUM CHLORIDE 20 MEQ TABLET.SA ONE (01:21)
[2016-08-10 01:25] VITALS: BP 97/44
[2016-08-10 13:18] LABS: Total Cells Counted 100
[2016-08-10 13:32] LABS: Band 2 % (0-2.0); Eosinophil 1 % (0-3); Lymphocyte 19 % (20-51); Monocyte 2 % (0-9); Neutrophil 76 % (42-75); Neutrophil # 14.3 K/mm3 (1.3-6.0); Platelet Estimate Normal (NORMAL); RBC Morphology Normal (NORMAL)
--- NOTE | 2016-08-11 04:17 | PATHPSR ---
PHYSICIAN: Rickey Lucas DO LAB#: [id number] SPECIMEN DATE: 08/10/2016 CLINICAL INFORMATION: Patient is complaining of left posterior lung pain and elevated WBC. Patient is a 55-year-old white woman with a history of chronic alcoholism and pancreatic cyst/pancreatitis and was being evaluated at [facility]. Her CBC showed an elevated WBC count she was evaluated in emergency room at [facility] on 08/10/2016. No sign of infection was detected. The peripheral smear review was ordered to exclude leukemia. CBC: WBC 17.3 K/mm3, hemoglobin 13.7 gm/dl, hematocrit 40 %, MCV is 91.7 fl, MCH is 31.4 pg, MCHC is 34.3 g/dl, Platelet count 377,000. Manual differential: Neutrophils 69 %, bands 1 %, lymphocytes 19 %, monocytes 6 %, eosinophils 6 %, basophils 0 %, atypical reactive lymphocytes 1 %. RED BLOOD CELLS: No abnormalities PLATELETS: No abnormalities WHITE BLOOD CELLS: Leukocytosis with Absolute Neutrophilia DIAGNOSIS: PERIPHERAL BLOOD SMEAR, REVIEW BY PATHOLOGIST: -REACTIVE APPEARING LEUKOCYTOSIS WITH ABSOLUTE NEUTROPHILIA, SEE COMMENT COMMENT: The leukocytosis is reactive appearing. If leukocytosis persist or becomes more severe and no site of infection/inflammation is identified including the pancreas/pancreatitis, further evaluation to exclude a myeloproliferative disorder including bone marrow may be indicated. No immature elements or malignancy is identified on our examination. The findings are FAXED and discussed with Dr. Lucas on 08/11/2016.
== END 2016-08-10 01:52 | disposition home or self-care (01) ==
LOC: ER 20:46
DX: J40 Bronchitis, not specified as acute or chronic (principal); Z72.0 Tobacco use; E87.6 Hypokalemia; R09.1 Pleurisy; D72.829 Elevated white blood cell count, unspecified; K21.9 Gastro-esophageal reflux disease without esophagitis; F41.9 Anxiety disorder, unspecified
CPT/HCPCS: 36415; 71020; 71275; 80048; 80053; 81001; 83605; 84484; 85025; 85045; 85060; 85379; 87040; 93005; 96374; 96375; 99285; J2405

== ENCOUNTER 2016-09-02 13:45 | Emergency (ER) | payer MEDICAID ==
[2016-09-02 14:22] LABS: Hematocrit 40.8 % (37.0-47.0); Mean Cell Volume 89.1 fl (78-100); Mean Corpuscular Hemoglobin 30.6 pg (27-31); Mean Corpuscular Hgb Conc 34.3 g/dl (32-36); Mean Platelet Volume 9.6 fl (6.0-9.5); Neutrophil # 12.4 K/mm3 (1.3-6.0); Neutrophil % 70.1 % (42-75.0); Platelet Count 424 K/mm3 (150-450); Red Blood Count 4.58 M/mm3 (4.2-5.4); Red Cell Distribution Width 13.2 % (11.5-14.0); White Blood Count 17.7 K/mm3 (4.0-10.5)
[2016-09-02 14:23] LABS: Urine Bilirubin Negative (NEGATIVE); Urine Blood Negative /ul (NEGATIVE); Urine Ketone Negative (NEGATIVE); Urine Nitrite Negative (NEGATIVE); Urine Protein Negative (NEGATIVE); Urine Specific Gravity <=1.005 SP.GR. (1.005-1.010); Urine Urobilinogen Normal (NORMAL)
[2016-09-02 14:32] LABS: Urine Appearance Clear; Urine Color Yellow
[2016-09-02 14:33] LABS: Urine Bacteria None Seen; Urine RBC None Seen /hpf (0-5); Urine WBC None Seen /hpf (0-5)
[2016-09-02 14:38] LABS: Albumin * 3.4 gm/dl (3.4-5.0); Anion Gap 9.9 mmol/L (6.8-13.8); BUN/Creatinine Ratio 8.2 (9.0-21.6); Bilirubin, Total 0.3 mg/dL (0.0-1.1); Ca. Corrected For Albumin 9.6 mg/dL (8.4-10.2); Calcium * 9.4 mg/dL (7.9-10.9); Carbon Dioxide 32.1 mmol/L (24-32.6); Total Protein 8.1 gm/dL (6.2-8.2)
--- NOTE | 2016-09-02 14:39 | ERNOTE ---
Abdominal HPI - Narrative Date of Service: 09/02/16 - General Chief Complaint: Abdominal Pain Time Seen by Provider: 09/02/16 14:31 Source: patient Exam Limitations: no limitations - Immun/Allergies/Home Medications Immunizatons: IMMUNIZATION HX Immunizations Up to Date Yes History of Influenza Vaccine No Hx Pneumococcal Vaccination No Allergies/Adverse Reactions: Allergies ceftriaxone [From Rocephin] Allergy (Intermediate, Verified 09/02/16 14:00) Hives Penicillins Adverse Reaction (Mild, Verified 09/02/16 14:00) rash Home Medications: HOME MEDICATIONS Fluticasone Propionate 15.8 ml NS DAILY #1 spray.susp 05/19/16 [Last Taken Unknown] Folic Acid 1 mg PO DAILY #30 tablet 05/19/16 [Last Taken Unknown] Gabapentin 300 mg PO TID #90 capsule 05/19/16 [Last Taken Unknown] Multivitamins [Multivitamin Ca] 1 cap PO DAILY #30 capsule 05/19/16 [Last Taken Unknown] ALPRAZolam [Xanax] 1 mg PO BID 08/09/16 [Last Taken Unknown] HYDROcodone/ACETAMINOPHEN [[place] 5-325 Tablet] 1 tab PO Q4H PRN 08/09/16 [Last Taken Unknown] Omeprazole [Prilosec] 20 mg PO DAILY 08/09/16 [Last Taken Unknown] Acamprosate Calcium [Campral] 333 mg PO DAILY 09/02/16 [Last Taken Unknown] Ciprofloxacin HCl [Cipro] 500 mg PO BID #20 tab 09/02/16 [Last Taken Unknown] Nabumetone 750 mg PO BID 09/02/16 [Last Taken Unknown] Polyethylene Glycol 3350 [Miralax] 17 gm PO DAILY #1 bottle 09/02/16 [Last Taken Unknown] metroNIDAZOLE [Flagyl] 500 mg PO Q8H #30 tablet 09/02/16 [Last Taken Unknown] - Pain Score Pain Score #1 Pain Score: 7 - History of Present Illness Narrative: 55yo, F, presents to ER for abdominal pain. Hx of pancreatitis, for which she is followed at [facility] by Dr. Patria Guevara. She is scheduled with MRI of pancreas with [facility] on 09/09/16. For the past week she is c/o severe abd pain, fatigue and subjective fever. Denies any nausea or vomiting. She has noted some loose stools for 1 week. Date (Duration): 08/26/16 Timing: getting worse Modifying Factors - (Improves): Present: lying down Modifying Factors - (Worsens): Present: other - nothing Associated Symptoms: Present: other - possible fever (felt warm). Absent: fatigue, nausea, vomiting Prior Abdominal Problems: Present: other - hx pancreatitis Review of Systems - Review of Systems Constitutional: Present: fever - subjective, fatigue. Absent: chills Respiratory: Absent: shortness of breath, cough, wheezing Gastrointestinal/Abdominal: Present: diarrhea, abdominal pain, eating less. Absent: nausea, vomiting Genitourinary: Absent: frequency, pain, dysuria, hematuria Skin: Absent: rash - Patient's Past Medical History Patient History - Medical: Alcohol Abuse, Anxiety, Arthritis, GERD Patient History - Cardiac/Respiratory: No pertinent hx Patient History - Cancer: No Hx of Cancer Patient History - Surgical Procedures: T & A, Other Patient History - Other: None - Family History Father Family History - Medical: Diabetes Type 2 - Social History Living Situations: home Psych History: Hx of Anxiety Smoking Status: Current every day smoker Have you smoked in the past 12 months: Yes Alcohol Use: other Drug Use: benzodiazepine, marijuana - Immunizations Immunizations Up to Date: Yes Hx Pneumococcal Vaccination: No History of Influenza Vaccine: No Physical Exam - Physical Exam General Appearance: Present: wd/wn, alert, no apparent distress Respiratory: Present: no respiratory distress, normal breath sounds. Absent: rales, rhonchi, wheezing Cardiovascular/Chest: Present: regular rate, rhythm, no murmur Gastrointestinal/Abdominal: Present: normal bowel sounds, nondistended, soft, tenderness - LLQ Back Exam: Present: normal inspection, no CVA tenderness Neurological Exam: Present: alert, oriented Skin Exam: Present: normal color, warm/dry ED Progress - Date and Time Seen: Date and Time: 09/02/16 16:51 Reviewed results and POC with pt. She v/u understanding and will keep MRI appt at [facility] as previously scheduled - Results and Orders Patient's Lab Results:: I have reviewed the patient's lab results. - Vital Signs Patient's Vital Signs:: I have reviewed the patient's vital signs. Vital Signs: Vital Signs 09/02/16 13:54 Temperature 37.3 C Pulse Rate 105 H Respiratory 15 Rate Blood Pressure 133/96 O2 Sat by Pulse 100 Oximetry - CT/Ultrasound CT/Ultrasound Narrative: [facility] PATIENT RADIOLOGY STUDY REPORT Patient Patient Name:ARNOLDO ESTRADA Date: 1960 Sex: F Order Number: [id number] Unique Exam ID: [id number] Exam Requested: [id number] - Abdomen Flat W/ Upright * Date Scheduled: 09-02-2016 02:49 PM Study Priority: Requesting Service: Requesting Physician: Farida Alan Reason for Exam: abd pain Radiological Report : [place] [address] NAME: ARNOLDO ESTRADA : 1960 MR #: [id number] CC: LOC: ER ADM DATE: X-RAY REPORT [id number] RAD/Abdomen Flat W/ Upright * Exam Date: 09/02/2016 14:49 Ordering Physician: Farida Alan Indication: Abdominal pain in left lower quadrant. Diarrhea. Technique: Supine and upright views the abdomen utilizing 3 total images compared to prior examination dated November 20, 2014. Findings: Moderate fecal retention seen throughout the colon. No dilation of colon. No air-filled or dilated loops of small bowel. No evidence for obstruction. No free air free fluid. Degenerative change of the spine and hips. IMPRESSION: MODERATE FECAL RETENTION WITHOUT EVIDENCE FOR OBSTRUCTION. Electronically signed by Xander Cuellar D.O.. Xander Cuellar DO Dict: 09/02/16 1522 Typed: 09/02/16 1522/ 09/02/16 1523 09/02/16 1525 [ rep ct labl] [ rep ct name suf] [ rep ct add1] [ rep ct add2] [ rep ct city], [ rep ct state] [ rep ct zip] Approved by: XANDER CUELLAR Approval Date: 09-02-2016 Approval Time: 03:22 PM THIS REPORT WAS RECEIVED FROM THE [employer] SYSTEM - Progress/Reassessment Chief Complaint: Abdominal Pain Progress:: Improved Departure - Departure Clinical Impression: Colitis Constipation Qualifiers: Constipation type: drug induced constipation Qualified Code(s): K59.03 - Drug induced constipation Disposition: Home self-care Condition: Good Instructions: Constipation, Adult, [id number] Additional Instructions: Please contact your GI doctor in [place] to schedule follow up appt Seek re-evaluation if symptoms worsen or do not improve Referrals: Rickey Lucas DO [Primary Care Provider] - Prescriptions: Ciprofloxacin HCl [Cipro] 500 mg PO BID #20 tab Polyethylene Glycol 3350 [Miralax] 17 gm PO DAILY #1 bottle metroNIDAZOLE [Flagyl] 500 mg PO Q8H #30 tablet
[2016-09-02 15:49] VITALS: BP 119/73
== END 2016-09-02 17:02 | disposition home or self-care (01) ==
LOC: ER 13:45
DX: K52.9 Noninfective gastroenteritis and colitis, unspecified (principal); K59.03 Drug induced constipation; K21.9 Gastro-esophageal reflux disease without esophagitis; M19.90 Unspecified osteoarthritis, unspecified site; F41.8 Other specified anxiety disorders; Z72.0 Tobacco use

== ENCOUNTER 2016-11-02 07:00 | Day surgery (SDC) | payer MEDICAID ==
[~2016-11-02 07:00] MED LIST: RINGER'S SOLUTION,LACTATED 1,000 ML IV PRN
[2016-11-02] MEDS ORDERED: RINGER'S SOLUTION,LACTATED 1,000 ML IV ONE (07:28)
--- NOTE | 2016-11-02 08:15 | OR ---
Operative Report - Dictated Report Narrative: Date: 11/02/2016 Preop dx: Screen for colon cancer Postop dx: Normal colonoscopy Procedure: total colonoscopy Surgeon: Len Avila MD Anesthesia: MAC per METEOROLOGIST IN CHARGE EBL: None Specimen: None Description: After informed consent and appropriate sedation the patient was placed in the left lateral decubitus position. A flexible fiberoptic video colonoscope was introduced and advanced under direct vision without difficulty to the cecum. The usual landmarks were identified. Preparation was excellent and excellent views were obtained. The findings were of a normal cecum, ascending colon, hepatic flexure, transverse colon, splenic flexure, descending colon, sigmoid colon, and rectum. The mucosal color, vasculature and texture were normal throughout. No suspicious masses were seen. The patient tolerated the procedure well without apparent complications and was discharged from the endoscopy suite in stable condition.
[2016-11-02 10:18] VITALS: BP 145/79
== END 2016-11-02 07:01 | disposition home or self-care (01) ==
LOC: AMB 07:00
PROVIDERS: ATTEND Specialist
PROC: 0DJD8ZZ Inspection of Lower Intestinal Tract, Via Natural or Artificial Opening Endoscopic (ICD-10-PCS; principal; 2016-11-02 08:00)
DX: Z12.11 Encounter for screening for malignant neoplasm of colon (principal); I10 Essential (primary) hypertension; K21.9 Gastro-esophageal reflux disease without esophagitis; F41.9 Anxiety disorder, unspecified; F17.200 Nicotine dependence, unspecified, uncomplicated; Z68.24 Body mass index [BMI] 24.0-24.9, adult